=== PATIENT | male | born 2000 | race Caucasian/White ===

== ENCOUNTER 2023-01-31 17:15 | Emergency (ER) | payer BC, SELFPAY ==
[2023-01-31 17:20] VITALS: BP 97/62; PULSE 69; RESP 16; TEMP 36.9; O2SAT 99; BMI 22.0
--- NOTE | 2023-01-31 17:55 | CT_ITS ---
[address] [address] Patient Name: YASMIN KIMBALL MRN: [id number] date: 2000 Sex: M Assigned Patient Location: ER Current Patient Location: ED.MAIN Accession/Order Number: [id number] Exam Date: 01/31/2023 18:20 Report Date: 01/31/2023 19:10 At the request of: MILENA STANLEY Procedure: CT abdomen pelvis w con EXAM: CT abdomen pelvis w con, 01/31/2023 HISTORY: Acute appendicitis COMPARISON: Prior CT scan from 03/27/2022 . TECHNIQUE: Contrast CT scan of the abdomen and pelvis was performed, using 99 mL of Omnipaque 300 intravenous iodine contrast. Dose reduction techniques were achieved by using automated exposure control and/or adjustment of mA and/or kV according to patient size and/or use of iterative reconstruction technique. FINDINGS: The liver, spleen, pancreas, gallbladder, bile ducts and both adrenal glands are unremarkable. Patent portal venous system. Unremarkable aorta and IVC. Uniform enhancement of both kidneys without hydronephrosis or hydroureter. Nondistended urinary bladder. Unremarkable prostate. No bowel loop dilatation or bowel wall thickening. No free fluid in the peritoneal cavity. Unremarkable appendix. Unremarkable osseous structures. Scans through the lung bases are clear. CT/CT abdomen pelvis w con IMPRESSION: No acute findings in the abdomen or pelvis. No evidence of acute appendicitis. Electronically authenticated by: PRIETO GRAJEDA Date: 01/31/2023 19:10
--- NOTE | 2023-01-31 17:56 | ED.ABDPAIN1 ---
Documented by User: CAROLINE Jennings 01/31/23 19:18 HPI - Abdominal Pain General Chief Complaint: Abdominal Pain Stated Complaint: ABDOMINAL PAIN Time Seen by Provider: 01/31/23 17:50 Source: patient Mode of arrival: walk-in Limitations: no limitations History of Present Illness HPI narrative: patient is a 22-year-old male who presents to the emergency department for right lower quadrant pain. Patient states he has a issues with pain on the right side of the abdomen for one year that come and go. He states he had a pulled muscle one year ago in his abdomen and occasionally this exacerbates. He states today he was having more significant pain in the right lower quadrant that seemed worse and different. He has had no fevers or vomiting. No urinary symptoms. He denies any testicular swelling or scrotal swelling. He has not had any diarrhea. No medications taken prior to arrival. Related Data Previous Rx's Medication Instructions Recorded ketorolac 10 mg tablet 10 mg PO TID PRN pain #10 tabs 01/31/23 methocarbamol 750 mg tablet 750 mg PO TID PRN pain #20 tabs 01/31/23 Allergies Allergy/AdvReac Type Severity Reaction Status Date / Time No Known Drug Allergies Allergy Verified 01/31/23 17:23 Review of Systems ROS Constitutional Denies: fever or chills Ears, nose, mouth, and throat Denies: throat pain or neck pain Cardiovascular Denies: chest pain Respiratory Denies: shortness of breath or cough Gastrointestinal Reports: abdominal pain; Denies: nausea or vomiting Genitourinary Denies: painful urination Musculoskeletal Denies: back pain Integumentary/Breast Denies: rash Neurological Denies: headache PFSH PFS Social History Smoking status: Current every day smoker Exam Narrative Exam Narrative: Gen.: Awake, alert, in no distress Head: Normocephalic, atraumatic ENT: Moist mucous membranes Respiratory: No respiratory distress Gastrointestinal: Abdomen is soft, tender in the right lower quadrant over McBurney's point with minimal guarding, no rebound. Extremities: Moves extremities equally Psych: Normal mood and affect Neuro: No focal neuro deficit Skin: Warm, dry, intact Constitutional Vital Signs, click to edit/add: Last Vital Signs Temp 98.1 F 01/31/23 19:04 Pulse 77 01/31/23 19:04 Resp 16 01/31/23 19:04 BP 118/60 01/31/23 19:04 Pulse Ox 98 01/31/23 19:04 O2 Del Method Room Air 01/31/23 19:04 Course Vital Signs Vital signs: Vital Signs Temperature 98.4 F 01/31/23 17:20 Pulse Rate 69 01/31/23 17:20 Respiratory Rate 16 01/31/23 17:20 Blood Pressure 97/62 01/31/23 17:20 Pulse Oximetry 99 01/31/23 17:20 Oxygen Delivery Method Room Air 01/31/23 17:20 Temperature 98.1 F 01/31/23 19:04 Pulse Rate 77 01/31/23 19:04 Respiratory Rate 16 01/31/23 19:04 Blood Pressure 118/60 01/31/23 19:04 Pulse Oximetry 98 01/31/23 19:04 Oxygen Delivery Method Room Air 01/31/23 19:04 MDM - Abdominal Pain MDM Narrative Medical decision making narrative: patient treated with IV Toradol, lab studies are unremarkable and the patient is discharged home with NSAIDs and muscle relaxant. CT with no evidence of acute appendicitis. Abdomen is soft and benign in the emergency department. Stable vital signs at discharge. Return to the emergency department if symptoms change or worsen. Medical Records Attestation: I reviewed the patient's medical records. Lab Data Attestation: I reviewed the patient's lab results. Labs: Lab Results 01/31/23 Range/Units 17:57 WBC 6.2 (4.0-11.0) 10^3/uL RBC 5.18 (4.70-6.10) 10^6/uL Hgb 15.8 (14.0-18.0) g/dL Hct 46.2 (42.0-54.0) % MCV 89.2 (80.0-94.0) fL MCH 30.5 (25.9-34.0) pg MCHC 34.2 (29.9-35.2) g/dL RDW 13.2 (11.0-15.0) % Plt Count 225 (150-450) 10^3/uL MPV 9.7 (9.5-13.5) fL Neut % (Auto) 51.8 (43.0-75.0) % Lymph % (Auto) 28.8 (20.5-60.0) % [place] % (Auto) 13.4 H (1.7-12.0) % Eos % (Auto) 4.7 (0.9-7.0) % Baso % (Auto) 1.1 (0.2-2.0) % Neut # (Auto) 3.2 (1.4-6.5) 10^3/uL Lymph # (Auto) 1.8 (1.2-3.8) 10^3/uL [place] # (Auto) 0.8 (0.3-0.8) 10^3/uL Eos # (Auto) 0.3 (0.0-0.7) 10^3/uL Baso # (Auto) 0.1 (0.0-0.1) 10^3/uL Abs Immat Gran (auto) 0.01 (0.00-0.03) 10^3/uL Imm/Tot Granulo (auto) 0.2 (0.0-0.5) % Sodium 141 (136-145) mmol/L Potassium 3.6 (3.5-5.1) mmol/L Chloride 104 (98-107) mmol/L Carbon Dioxide 27.9 (21.0-32.0) mmol/L Anion Gap 12.7 BUN 10.0 (7.0-18.0) mg/dL Creatinine 0.89 (0.70-1.30) mg/dL Est GFR ( Amer) >60 (>=60) Est GFR (Non-Af Amer) >60 (>=60) BUN/Creatinine Ratio 11.2 Glucose 90 (74-106) mg/dL Lactate 0.7 (0.4-2.0) mmol/L Calcium 8.6 (8.5-10.1) mg/dL Total Bilirubin 1.1 H (0.2-1.0) mg/dL AST 16 (15-37) U/L ALT 26 (16-63) U/L Alkaline Phosphatase 58 (46-116) U/L Total Protein 7.8 (6.4-8.2) g/dL Albumin 4.6 (3.4-5.0) g/dL Globulin 3.2 g/dL Albumin/Globulin Ratio 1.4 Lipase 92.0 (73.0-393.0) U/L Imaging Data CT scan - abdomen: Attestation: I have reviewed the pertinent imaging results. Radiologist's impression: Procedure: CT abdomen pelvis w con EXAM: CT abdomen pelvis w con, 01/31/2023 HISTORY: Acute appendicitis COMPARISON: Prior CT scan from 03/27/2022 . TECHNIQUE: Contrast CT scan of the abdomen and pelvis was performed, using 99 mL of Omnipaque 300 intravenous iodine contrast. Dose reduction techniques were achieved by using automated exposure control and/or adjustment of mA and/or kV according to patient size and/or use of iterative reconstruction technique. FINDINGS: The liver, spleen, pancreas, gallbladder, bile ducts and both adrenal glands are unremarkable. Patent portal venous system. Unremarkable aorta and IVC. Uniform enhancement of both kidneys without hydronephrosis or hydroureter. Nondistended urinary bladder. Unremarkable prostate. No bowel loop dilatation or bowel wall thickening. No free fluid in the peritoneal cavity. Unremarkable appendix. Unremarkable osseous structures. Scans through the lung bases are clear. IMPRESSION: No acute findings in the abdomen or pelvis. No evidence of acute appendicitis. Electronically authenticated by: PRIETO GRAJEDA Date: 01/31/2023 19:10 Discharge Plan Discharge Chief Complaint: Abdominal Pain Clinical Impression: Abdominal pain Patient Disposition: Home, Self-Care Time of Disposition Decision: 19:15 Condition: Good Mode of Transportation: Private Vehicle Prescriptions / Home Meds: New ketorolac 10 mg tablet 10 mg PO TID PRN (Reason: pain) Qty: 10 0RF methocarbamol 750 mg tablet 750 mg PO TID PRN (Reason: pain) Qty: 20 0RF Stand Alone Forms: Portal Instructions Referrals: [facility] CALLE [Primary Care Provider] - 1 week Discharge Date/Time: 01/31/23 19:32 Documented by User: Rich Colindres MD 01/31/23 20:28 HPI - Abdominal Pain General Chief Complaint: Abdominal Pain Stated Complaint: ABDOMINAL PAIN Time Seen by Provider: 01/31/23 17:50 Related Data Previous Rx's Medication Instructions Recorded ketorolac 10 mg tablet 10 mg PO TID PRN pain #10 tabs 01/31/23 methocarbamol 750 mg tablet 750 mg PO TID PRN pain #20 tabs 01/31/23 Allergies Allergy/AdvReac Type Severity Reaction Status Date / Time No Known Drug Allergies Allergy Verified 01/31/23 17:23 PFSH PFSH Social History Smoking status: Current every day smoker Exam Constitutional Vital Signs, click to edit/add: Last Vital Signs Temp 98.1 F 01/31/23 19:04 Pulse 77 01/31/23 19:04 Resp 16 01/31/23 19:04 BP 118/60 01/31/23 19:04 Pulse Ox 98 01/31/23 19:04 O2 Del Method Room Air 01/31/23 19:04 Course Vital Signs Vital signs: Vital Signs Temperature 98.4 F 01/31/23 17:20 Pulse Rate 69 01/31/23 17:20 Respiratory Rate 16 01/31/23 17:20 Blood Pressure 97/62 01/31/23 17:20 Pulse Oximetry 99 01/31/23 17:20 Oxygen Delivery Method Room Air 01/31/23 17:20 Temperature 98.1 F 01/31/23 19:04 Pulse Rate 77 01/31/23 19:04 Respiratory Rate 16 01/31/23 19:04 Blood Pressure 118/60 01/31/23 19:04 Pulse Oximetry 98 01/31/23 19:04 Oxygen Delivery Method Room Air 01/31/23 19:04 MDM - Abdominal Pain MDM Narrative Medical decision making narrative: patient treated with IV Toradol, lab studies are unremarkable and the patient is discharged home with NSAIDs and muscle relaxant. CT with no evidence of acute appendicitis. Abdomen is soft and benign in the emergency department. Stable vital signs at discharge. Return to the emergency department if symptoms change or worsen. I, Dr Colindres, have reviewed the above progress note and course of action in the ER; agree with the above. Lab Data Labs: Lab Results 01/31/23 Range/Units 17:57 WBC 6.2 (4.0-11.0) 10^3/uL RBC 5.18 (4.70-6.10) 10^6/uL Hgb 15.8 (14.0-18.0) g/dL Hct 46.2 (42.0-54.0) % MCV 89.2 (80.0-94.0) fL MCH 30.5 (25.9-34.0) pg MCHC 34.2 (29.9-35.2) g/dL RDW 13.2 (11.0-15.0) % Plt Count 225 (150-450) 10^3/uL MPV 9.7 (9.5-13.5) fL Neut % (Auto) 51.8 (43.0-75.0) % Lymph % (Auto) 28.8 (20.5-60.0) % [place] % (Auto) 13.4 H (1.7-12.0) % Eos % (Auto) 4.7 (0.9-7.0) % Baso % (Auto) 1.1 (0.2-2.0) % Neut # (Auto) 3.2 (1.4-6.5) 10^3/uL Lymph # (Auto) 1.8 (1.2-3.8) 10^3/uL [place] # (Auto) 0.8 (0.3-0.8) 10^3/uL Eos # (Auto) 0.3 (0.0-0.7) 10^3/uL Baso # (Auto) 0.1 (0.0-0.1) 10^3/uL Abs Immat Gran (auto) 0.01 (0.00-0.03) 10^3/uL Imm/Tot Granulo (auto) 0.2 (0.0-0.5) % Sodium 141 (136-145) mmol/L Potassium 3.6 (3.5-5.1) mmol/L Chloride 104 (98-107) mmol/L Carbon Dioxide 27.9 (21.0-32.0) mmol/L Anion Gap 12.7 BUN 10.0 (7.0-18.0) mg/dL Creatinine 0.89 (0.70-1.30) mg/dL Est GFR ( Amer) >60 (>=60) Est GFR (Non-Af Amer) >60 (>=60) BUN/Creatinine Ratio 11.2 Glucose 90 (74-106) mg/dL Lactate 0.7 (0.4-2.0) mmol/L Calcium 8.6 (8.5-10.1) mg/dL Total Bilirubin 1.1 H (0.2-1.0) mg/dL AST 16 (15-37) U/L ALT 26 (16-63) U/L Alkaline Phosphatase 58 (46-116) U/L Total Protein 7.8 (6.4-8.2) g/dL Albumin 4.6 (3.4-5.0) g/dL Globulin 3.2 g/dL Albumin/Globulin Ratio 1.4 Lipase 92.0 (73.0-393.0) U/L Discharge Plan Discharge Chief Complaint: Abdominal Pain Clinical Impression: Abdominal pain Patient Disposition: Home, Self-Care Time of Disposition Decision: 19:15 Condition: Good Mode of Transportation: Private Vehicle Prescriptions / Home Meds: New ketorolac 10 mg tablet 10 mg PO TID PRN (Reason: pain) Qty: 10 0RF methocarbamol 750 mg tablet 750 mg PO TID PRN (Reason: pain) Qty: 20 0RF Stand Alone Forms: Portal Instructions Referrals: [facility] CAL[facility] [Primary Care Provider] - 1 week Discharge Date/Time: 01/31/23 19:32
[2023-01-31 18:12] LABS: Basophils Absolute Auto 0.1 10^3/uL (0.0-0.1); Basophils Percent Auto 1.1 % (0.2-2.0); Eosinophils Absolute Auto 0.3 10^3/uL (0.0-0.7); Eosinophils Percent Auto 4.7 % (0.9-7.0); Hematocrit 46.2 % (42.0-54.0); Hemoglobin 15.8 g/dL (14.0-18.0); Immature Granulocytes Abs Auto 0.01 10^3/uL (0.00-0.03); Immature Granulocytes Pct Auto 0.2 % (0.0-0.5); Lymphocytes Absolute Auto 1.8 10^3/uL (1.2-3.8); Lymphocytes Percent Auto 28.8 % (20.5-60.0); Mean Corpuscular HGB Conc 34.2 g/dL (29.9-35.2); Mean Corpuscular Hemoglobin 30.5 pg (25.9-34.0); Mean Corpuscular Volume 89.2 fL (80.0-94.0); Mean Platelet Volume 9.7 fL (9.5-13.5); Monocytes Absolute Auto 0.8 10^3/uL (0.3-0.8); Monocytes Percent Auto 13.4 % (1.7-12.0); Neutrophils Absolute Auto 3.2 10^3/uL (1.4-6.5); Neutrophils Percent Auto 51.8 % (43.0-75.0); Platelet Count 225 10^3/uL (150-450); Red Blood Count 5.18 10^6/uL (4.70-6.10); Red Cell Distribution Width 13.2 % (11.0-15.0); White Blood Count 6.2 10^3/uL (4.0-11.0)
[2023-01-31] MEDS: KETOROLAC TROMETHAMINE 30 MG/ML VIAL IVP (18:15)
[2023-01-31 18:28] LABS: Alanine Aminotransferase 26 U/L (16-63); Albumin Globulin Ratio 1.4; Albumin Level 4.6 g/dL (3.4-5.0); Alkaline Phosphatase 58 U/L (46-116); Anion Gap 12.7; Aspartate Amino Transferase 16 U/L (15-37); BUN Creatinine Ratio 11.2; Bilirubin Total 1.1 mg/dL (0.2-1.0); Calcium 8.6 mg/dL (8.5-10.1); Carbon Dioxide 27.9 mmol/L (21.0-32.0); Chloride 104 mmol/L (98-107); Estimated GFR (African America >60 (>=60); Estimated GFR (Non-African Ame >60 (>=60); Globulin 3.2 g/dL; Glucose 90 mg/dL (74-106); Potassium 3.6 mmol/L (3.5-5.1); Sodium 141 mmol/L (136-145); Total Protein 7.8 g/dL (6.4-8.2)
[2023-01-31 18:30] LABS: Lactate/Lactic Acid 0.7 mmol/L (0.4-2.0)
[2023-01-31 19:04] VITALS: BP 118/60; PULSE 77; RESP 16; TEMP 36.7; O2SAT 98
== END 2023-01-31 19:32 | disposition home or self-care (01) ==
PROVIDERS: Physician Assistant; Emergency Provider Emergency Medicine; PCP Family Medicine
DX: R10.9 Unspecified abdominal pain (principal); F17.210 Nicotine dependence, cigarettes, uncomplicated
CPT/HCPCS: 36415; 74177; 80053; 83605; 83690; 85025; 96374; 99285; Q9967